=== PATIENT | female | born 1995 | race Caucasian/White ===

== ENCOUNTER 2018-05-29 22:43 | Observation (INO) | payer OTHER ==
[2018-05-29] MEDS ORDERED: ONDANSETRON HCL INJ/PF 4 MG/2 ML SDV IV ONE (22:52)
[2018-05-29 23:39] LABS: ABSOLUTE BASOPHILS # (AUTO) 0.1 10^3/uL (0.0-0.2); ABSOLUTE LYMPHOCYTES (AUTO) 1.6 10^3/uL (0.5-4.7); ABSOLUTE MONOCYTES (AUTO) 0.8 10^3/uL (0.1-1.4); ABSOLUTE NEUT (AUTO) 16.2 10^3/uL (1.7-8.2); BASOPHILS % (AUTO) 0.4 % (0-2); EOSINOPHILS % (AUTO) 0.3 % (0-6); HEMATOCRIT 40.4 % (36.0-47.0); HEMOGLOBIN 13.5 g/dL (12.0-15.5); LYMPHOCYTES % (AUTO) 8.5 % (13-45); MEAN CORPUSCULAR HEMOGLOBIN 29.8 pg (27.0-33.4); MEAN CORPUSCULAR HGB CONC 33.4 g/dL (32.0-36.0); MEAN CORPUSCULAR VOLUME 89 fl (80-97); MONOCYTES % (AUTO) 4.3 % (3-13); PLATELET COUNT 277 10^3/uL (150-450); RED BLOOD COUNT 4.52 10^6/uL (3.72-5.28); RED CELL DISTRIBUTION WIDTH 12.7 % (11.5-14.0); SEGMENTED NEUTROPHILS % (AUTO) 86.5 % (42-78); TOTAL CELLS COUNTED % (AUTO) 100 %; WHITE BLOOD COUNT 18.7 10^3/uL (4.0-10.5)
[2018-05-30 00:03] LABS: ALANINE AMINOTRANSFERASE 31 U/L (9-52); ALBUMIN 3.9 g/dL (3.5-5.0); ALKALINE PHOSPHATASE 72 U/L (38-126); ANION GAP 12 (5-19); ASPARTATE AMINO TRANSFERASE 29 U/L (14-36); BILIRUBIN,DIRECT 0.3 mg/dL (0.0-0.4); BILIRUBIN,TOTAL 0.6 mg/dL (0.2-1.3); BLOOD UREA NITROGEN 14 mg/dL (7-20); CALCIUM 8.9 mg/dL (8.4-10.2); CARBON DIOXIDE 22 mmol/L (22-30); CHLORIDE 104 mmol/L (98-107); GLUCOSE 206 mg/dL (75-110); LIPASE 36.2 U/L (23-300); POTASSIUM 4.1 mmol/L (3.6-5.0); SODIUM 138.3 mmol/L (137-145); TOTAL PROTEIN 6.8 g/dL (6.3-8.2)
[2018-05-30] MEDS ORDERED: NORMAL SALINE 1000 ML 1,000 ML IV ONE ×2 (03:51→06:49)
[2018-05-30 03:59] LABS: APPEARANCE,URINE CLOUDY; BILIRUBIN,URINE NEGATIVE (NEGATIVE); COLOR,URINE AMBER; GLUCOSE, URINE NEGATIVE (NEGATIVE); KETONES,URINE TRACE mg/dL (NEGATIVE); LEUKOCYTE ESTERASE,URINE NEGATIVE (NEGATIVE); NITRITE,URINE NEGATIVE (NEGATIVE); PROTEIN,URINE 30 mg/dL (NEGATIVE); URINE SPECIFIC GRAVITY 1.032
--- NOTE | 2018-05-30 04:08 | ER Document Report ---
ED General - General Chief Complaint: Abdominal Pain Stated Complaint: ABDOMINAL CRAMPING Time Seen by Provider: 05/30/18 03:24 Mode of Arrival: Ambulatory Information source: Patient Notes: 23-year-old female with no reported past medical history presents with complaint of abdominal pain, nausea, diarrhea. Patient states that she was at work when she suddenly began to sweat and then experienced sharp lower abdominal pain that now radiates up into the right upper quadrant. Patient had associated nausea and one episode of vomiting. She also states that she had an episode of diarrhea while waiting in the emergency department. Patient is unsure whether or not she is . Her last menstrual period was April 14, 2018. She states that she took a home test on May 16, 2018 which was positive but a repeat test done on May 23 was negative. TRAVEL OUTSIDE OF THE [place] IN LAST 30 DAYS: No - HPI Onset: Just prior to arrival Onset/Duration: Sudden Quality of pain: Cramping Associated symptoms: Diarrhea, Nausea, Vomiting, Sweating Exacerbated by: Denies Relieved by: Denies Similar symptoms previously: No Recently seen / treated by doctor: No - Related Data Allergies/Adverse Reactions: No Known Allergies Allergy (Unverified 05/29/18 22:45) Past Medical History - General Information source: Patient, [facility] Records - Social History Smoking Status: Never Smoker Chew tobacco use (# tins/day): No Frequency of alcohol use: None Drug Abuse: None Lives with: Family Family History: Reviewed & Not Pertinent Patient has suicidal ideation: No Patient has homicidal ideation: No - Medical History Medical History: Negative Renal/ Medical History: Denies: Hx Peritoneal Dialysis Review of Systems - Review of Systems Notes: REVIEW OF SYSTEMS: CONSTITUTIONAL : Denies fever, chills, Denies recent illness. Denies weight loss, recent hospitalizations. EENT: Denies visual changes, eye pain. Denies sore throat, oral lesions, difficulty swallowing. CARDIOVASCULAR: Denies chest pain. Denies palpitations. Denies lower extremity edema. RESPIRATORY: Denies cough. Denies shortness of breath, wheezing. GASTROINTESTINAL: Denies abdominal distention. Denies blood in vomitus, stools, or per rectum. Denies black, tarry stools. Denies constipation. GENITOURINARY: Denies difficulty urinating, painful urination, frequency, blood in urine, or vaginal discharge. MUSCULOSKELETAL: Denies back or neck pain or stiffness. Denies joint pain or swelling. SKIN: Denies rash, lesions or sores. HEMATOLOGIC : Denies easy bruising or bleeding. LYMPHATIC: Denies swollen glands. NEUROLOGICAL: Denies confusion or altered mental status. Denies loss of consciousness. Denies dizziness or lightheadedness. Denies headache. Denies weakness or paralysis. Denies problems difficulty with ambulation, slurred speech. Denies sensory loss, numbness, or tingling. Denies seizures. PSYCHIATRIC: Denies anxiety or stress. Denies depression, suicidal ideation, or homicidal ideation. Denies visual or auditory hallucinations. Physical Exam - Vital signs Vitals: Temp Pulse Resp BP Pulse Ox 98.6 F 88 17 117/51 L 100 05/30/18 05:30 05/30/18 05:30 05/30/18 05:30 05/30/18 05:30 05/30/18 05:30 - Notes Notes: PHYSICAL EXAMINATION: GENERAL: Well-appearing, well-nourished and in no acute distress. HEAD: Atraumatic, normocephalic. EYES: Pupils equal round and reactive to light, extraocular movements intact, conjunctiva are normal. ENT: Nares patent, oropharynx clear without exudates. Moist mucous membranes. NECK: Normal range of motion, supple without lymphadenopathy LUNGS: Breath sounds clear to auscultation bilaterally and equal. No wheezes rales or rhonchi. HEART: Regular rate and rhythm without murmurs ABDOMEN: Generalized abdominal tenderness with palpation no guarding, no rebound. No masses appreciated. Female : os open, moderate bleeding, small clots. Musculoskeletal: Normal range of motion, no pitting or edema. No cyanosis. NEUROLOGICAL: Cranial nerves grossly intact. Normal speech, normal gait. Normal sensory, motor exams PSYCH: Normal mood, normal affect. SKIN: Warm, Dry, normal turgor, no rashes or lesions noted. Course - Re-evaluation Re-evalutation: Laboratory 05/29/18 05/29/18 05/29/18 23:11 23:11 23:11 WBC 18.7 H RBC 4.52 Hgb 13.5 Hct 40.4 MCV 89 MCH 29.8 MCHC 33.4 RDW 12.7 Plt Count 277 Seg Neutrophils % 86.5 H Lymphocytes % 8.5 L Monocytes % 4.3 Eosinophils % 0.3 Basophils % 0.4 Absolute Neutrophils 16.2 H Absolute Lymphocytes 1.6 Absolute Monocytes 0.8 Absolute Eosinophils 0.0 Absolute Basophils 0.1 Sodium 138.3 Cancelled Potassium 4.1 Cancelled Chloride 104 Cancelled Carbon Dioxide 22 Cancelled Anion Gap 12 Cancelled BUN 14 Cancelled Creatinine 0.86 Cancelled Est GFR ( Amer) > 60 Cancelled Est GFR (Non-Af Amer) > 60 Cancelled Glucose 206 H Cancelled Calcium 8.9 Cancelled Total Bilirubin 0.6 Direct Bilirubin 0.3 Neonat Total Bilirubin Not Reportable Neonat Direct Bilirubin Not Reportable Neonat Indirect Bili Not Reportable AST 29 ALT 31 Alkaline Phosphatase 72 Total Protein 6.8 Albumin 3.9 Lipase 36.2 Cancelled Beta HCG, Quant 7364.30 H Total Beta HCG POSITIVE Urine Color Urine Appearance Urine pH Ur Specific [place] Urine Protein Urine Glucose (UA) Urine Ketones Urine Blood Urine Nitrite Urine Bilirubin Urine Urobilinogen Ur Leukocyte Esterase Urine WBC (Auto) Urine RBC (Auto) U Hyaline Cast (Auto) Squamous Epi Cells Auto Urine Mucus (Auto) Urine Ascorbic Acid Urine HCG, Qual Trichomonas (Wet Prep) Vaginal WBC Vaginal RBC Vaginal Yeast 05/30/18 05/30/18 03:41 05:43 WBC RBC Hgb Hct MCV MCH MCHC RDW Plt Count Seg Neutrophils % Lymphocytes % Monocytes % Eosinophils % Basophils % Absolute Neutrophils Absolute Lymphocytes Absolute Monocytes Absolute Eosinophils Absolute Basophils Sodium Potassium Chloride Carbon Dioxide Anion Gap BUN Creatinine Est GFR ( Amer) Est GFR (Non-Af Amer) Glucose Calcium Total Bilirubin Direct Bilirubin Neonat Total Bilirubin Neonat Direct Bilirubin Neonat Indirect Bili AST ALT Alkaline Phosphatase Total Protein Albumin Lipase Beta HCG, Quant Total Beta HCG Urine Color LEONARD Urine Appearance CLOUDY Urine pH 5.0 Ur Specific [place] 1.032 Urine Protein 30 H Urine Glucose (UA) NEGATIVE Urine Ketones TRACE H Urine Blood NEGATIVE Urine Nitrite NEGATIVE Urine Bilirubin NEGATIVE Urine Urobilinogen 2.0 H Ur Leukocyte Esterase NEGATIVE Urine WBC (Auto) 4 Urine RBC (Auto) 0 U Hyaline Cast (Auto) 234 Squamous Epi Cells Auto 1 Urine Mucus (Auto) MOD Urine Ascorbic Acid 20 H Urine HCG, Qual POSITIVE H Trichomonas (Wet Prep) NO TRICHOMONAS SEEN Vaginal WBC 1+ WBCS SEEN Vaginal RBC 4+ RBCS SEEN Vaginal Yeast NO YEAST SEEN Obstetrics Ultrasound 05/30/18 04:56 IMPRESSION: 1. No intrauterine gestation identified. Differential considerations include early normal , ectopic , or miscarriage. 2. Nonvascular heterogeneous left adnexal structure may represent a hemorrhagic cyst however other etiology not excluded. Close continued clinical, laboratory, and sonographic follow-up recommended. 3. Moderate amount of free pelvic fluid with internal debris. 2010 [employer]- All Rights Reserved 05/30/18 06:19 23-year-old female A1 presents with complaint of severe abdominal pain, nausea and vomiting. Patient symptoms started just prior to arrival. Her last menstrual period was April 11, 2018. She states that on May 16 she took a home test which was positive and then repeated at 1 week later and it was negative. Patient began bleeding today. Vital signs stable upon arrival. Patient initially appeared comfortable but during pelvic exam began experience being intense pain. Morphine was administered. Patient has a positive test and a beta quant 7634. Exam revealed an open Os and small clots with moderate bleeding. CBC does show a leukocytosis. CMP does show an elevated glucose without evidence of DKA. Bedside ultrasound significant for free fluid in the pelvis. Formal transvaginal ultrasound shows no IUP and moderate amount of free pelvic fluid with internal debris. Second IV line obtained. IV fluids initiated. Additional dose of fentanyl was administered. I did speak to Dr. Quinones DIRECTOR SOFTWARE on-call who will admit the patient. 05/30/18 06:19 05/30/18 06:51 - Vital Signs Vital signs: Temp Pulse Resp BP Pulse Ox 98.6 F 88 17 117/51 L 100 05/30/18 05:30 05/30/18 05:30 05/30/18 05:30 05/30/18 05:30 05/30/18 05:30 - Laboratory Result Diagrams: 05/29/18 23:11 05/29/18 23:11 Laboratory results interpreted by me: 05/29/18 05/29/18 05/29/18 23:11 23:11 23:11 WBC 18.7 H Seg Neutrophils % 86.5 H Lymphocytes % 8.5 L Absolute Neutrophils 16.2 H Glucose 206 H Beta HCG, Quant 7364.30 H Urine Protein Urine Ketones Urine Urobilinogen Urine Ascorbic Acid Urine HCG, Qual 05/30/18 03:41 WBC Seg Neutrophils % Lymphocytes % Absolute Neutrophils Glucose Beta HCG, Quant Urine Protein 30 H Urine Ketones TRACE H Urine Urobilinogen 2.0 H Urine Ascorbic Acid 20 H Urine HCG, Qual POSITIVE H - Diagnostic Test Radiology reviewed: Image reviewed, Reports reviewed Procedures - Ultrasound/Bedside Ultrasound/Bedside Time completed: 06:50 - FAST exam performed and significant for free fluid in Morison's pouch and the posterior cul-de-sac. Critical Care Note - Critical Care Note Total time excluding time spent on procedures (mins): 35 - minutes of critical care time spent in direct contact evaluating and reevaluating the patient, treating symptoms, reviewing labs and studies and speaking with family and consultants excluding any procedures Discharge - Discharge Clinical Impression: Bleeding in early , Free fluid in pelvis, Tachycardia Pelvic pain affecting Qualifiers: Trimester: first trimester Qualified Code(s): O26.891 - Other specified related conditions, first trimester Ectopic without intrauterine Qualifiers: Location of ectopic : unspecified location Qualified Code(s): O00.90 - Unspecified ectopic without intrauterine Condition: Good Disposition: ADMITTED INPATIENT Admitting Provider: [facility] Admitted: Labor and Delivery Referrals: SURINDER,NO [NO LOCAL MD] - Follow up as needed
[2018-05-30] MEDS ORDERED: MORPHINE SULFATE 10 MG/ML INJ ONE (05:22)
[2018-05-30] MEDS ORDERED: MORPHINE SULFATE 10 MG/ML INJ IV ONE (05:33)
[2018-05-30 06:01] LABS: RBCS (WET MOUNT) 4+ RBCS SEEN; T.VAGINALIS (WET MOUNT) NO TRICHOMONAS SEEN; WBCS (WET MOUNT) 1+ WBCS SEEN; YEAST (WET MOUNT) NO YEAST SEEN
--- NOTE | 2018-05-30 06:39 | RADIOLOGY REPORT (SQ) ---
EXAM DESCRIPTION: US TRANSVAGINAL COMPLETED DATE/TME: 05/30/2018 04:56 CLINICAL HISTORY: 23 years, Female, Pelvic pain and bleeding with LMP: 04/24/2018 COMPARISON: None. TECHNIQUE: Complete first trimester obstetrical ultrasound with transvaginal and transabdominal imaging. FINDINGS: The uterus measures 8.4 x 5.1 x 3.8 cm. Endometrial thickness of 0.9 cm. Cervical length of 2.8 cm and closed. No myometrial abnormalities. No intrauterine gestation identified. Moderate amount of free pelvic fluid. The right ovary is not identified. In the left adnexa there is a heterogeneous structure with no blood flow measuring 6.5 x 6.7 x 4.6 cm. This may represent a large hemorrhagic ovarian cyst however other etiologies are not excluded. IMPRESSION: 1. No intrauterine gestation identified. Differential considerations include early normal , ectopic , or miscarriage. 2. Nonvascular heterogeneous left adnexal structure may represent a hemorrhagic cyst however other etiology not excluded. Close continued clinical, laboratory, and sonographic follow-up recommended. 3. Moderate amount of free pelvic fluid with internal debris. 2011 [employer]- All Rights Reserved
[2018-05-30] MEDS ORDERED: FENTANYL CITRATE INJ/PF 100 MCG/2 ML AMPUL IV ONE (06:49)
[2018-05-30 07:29] LABS: CHLAM PCR NOT DETECTED (NOT DETECT); GON PCR NOT DETECTED (NOT DETECT)
--- NOTE | 2018-05-30 08:55 | HISTORY AND PHYSICAL E ---
History and Physical NAME: CHELSEA ZAMUDIO : 1995 AGE: 23Y ADMITTED: 05/30/2018 ROOM: 213 HISTORY OF PRESENT CONDITION: The patient is a 23-year-old, 2, para 0, last menstrual period April 24, 2018 who presented to the emergency room last p.m. with a sudden onset of lower abdominal pain. She states that she had 1 episode of being very hot and nauseated with vomiting prior to presenting to the Emergency Room. Her Beta hCG was 7364. Ultrasound did reveal an empty uterus with fluid in the cul-de-sac. There was a rough adnexa heterogenous structure measuring approximately 6.5 x 6.7 x 4.6. Patient states she did pass some old blood while in the emergency room. Her blood type is Rh-Positive. MEDICAL/SURGICAL HISTORY: Negative. REGIONAL ACCOUNT MANAGER HISTORY: Spontaneous in 2011. MEDICATIONS: None. ALLERGIES: None known. FAMILY HISTORY: Noncontributory. REVIEW OF SYSTEMS: Patient states she has regular periods and is presently using no control. Patient states she has regular cycles every 28 to 32 days without dysmenorrhea. All other medical systems are reviewed and are negative. PHYSICAL EXAMINATION: VITALS: Afebrile, stable. GENERAL: A well-developed, well-nourished young female in no distress. HEENT: Head: Normocephalic, atraumatic. Eyes: Pupils equal, round, and react to light and accommodate. Extraocular movements intact. Ears: Both TMs visible with good landmarks. Nose: Moist mucosa, midline septum. Throat: Normal pharynx. NECK: Supple. No adenopathy. LUNGS: Clear to auscultation bilaterally. HEART: Regular rate and rhythm. No murmurs. ABDOMEN: Slightly obese, soft. Tender with deep palpation. No masses. No organomegaly. MUSCULOSKELETAL: Good range of motion all joints. Good strength. No CVA tenderness. NEUROLOGIC: Grossly intact, without focal deficits. EXTREMITIES: Distal pulses are symmetrical bilaterally. No edema. Nontender. PELVIC: External: Normal female. Vagina: Without lesions. There is a scant amount of old blood in the vault. Cervix: The os is closed. No active bleeding. Uterus: Anteverted. Normal shape, size, and contour, approximately 8 weeks in size. Tender with motion. Adnexa: No masses could be palpated. There is bilateral tenderness that can be elicited with mild to moderate palpation. IMPRESSION/PLAN: Ectopic . We will take patient to the operating room and undergo a laparoscopic possibly laparotomy with salpingectomy, possible salpingo-oophorectomy. Risks, benefits, as well as alternatives were discussed with patient and patient's mother at length. They verbalized understanding and wishes to proceed. DICTATING PHYSICIAN: DORENE BENITEZ M.D. [id number] Y#: [id number] ID: [id number] JOB#: [id number] ACCT: [id number] cc:Rey PÉREZ
[2018-05-30] MEDS ORDERED: HYDROMORPHONE HCL INJ/PF 2 MG/ML AMPULE ONE ×2 (09:35→14:36)
[2018-05-30] MEDS ORDERED: FENTANYL CITRATE INJ/PF 100 MCG/2 ML AMPUL ONE (09:35)
[2018-05-30] MEDS ORDERED: MIDAZOLAM 2 MG/2 ML INJ ONE (09:35)
[2018-05-30] MEDS ORDERED: DEXAMETHASONE SOD PHOSPHATE INJ 4 MG/1 ML VIAL ONE (09:35)
[2018-05-30] MEDS ORDERED: ONDANSETRON HCL INJ/PF 4 MG/2 ML SDV ONE (09:36)
[2018-05-30] MEDS ORDERED: PROPOFOL INJ 200 MG/20 ML VIAL IV ONE (09:36)
[2018-05-30] MEDS ORDERED: ACETAMINOPHEN 1,000 MG/100 ML RTUPB IV ONE (09:36)
[2018-05-30] MEDS ORDERED: SUCCINYLCHOLINE CHLORIDE INJ 200 MG/10 ML VIAL ONE (09:44)
[2018-05-30] MEDS ORDERED: ROCURONIUM BROMIDE INJ 50 MG/5 ML VIAL IV ONE (09:44)
[2018-05-30] MEDS ORDERED: DIPHENHYDRAMINE HCL 50 MG/ML VIAL IV PRN (10:41)
[2018-05-30] MEDS ORDERED: FENTANYL CITRATE INJ/PF 100 MCG/2 ML AMPUL IV PRN ×3 (10:41)
[2018-05-30] MEDS ORDERED: MEPERIDINE HCL/PF INJ 25 MG/1 ML DISP.SYRIN IV PRN (10:41)
[2018-05-30] MEDS ORDERED: MORPHINE SULFATE 10 MG/ML INJ IV PRN (10:41)
[2018-05-30] MEDS ORDERED: PROMETHAZINE HCL INJ 25 MG/1 ML VIAL IV PRN ×2 (10:41→11:35)
[2018-05-30] MEDS ORDERED: SIMETHICONE 80 MG TAB.CHEW PO PRN (11:35)
[2018-05-30] MEDS ORDERED: OXYCODONE-ACETAMINOPHEN 5-325 MG TABLET PO PRN ×2 (11:35)
[2018-05-30] MEDS ORDERED: HYDROMORPHONE HCL INJ/PF 2 MG/ML AMPULE IV PRN (11:35)
[2018-05-30] MEDS ORDERED: ACETAMINOPHEN 1,000 MG/100 ML RTUPB IV PRN (11:35)
[2018-05-30] MEDS ORDERED: ACETAMINOPHEN 325 MG TABLET PO PRN (11:35)
[2018-05-30] MEDS ORDERED: RINGERS SOLUTION,LACTATED 1,000 ML IV PRN (11:35)
--- NOTE | 2018-05-30 11:43 | Operative Report ---
Operative Report DATE OF SURGERY: 05/30/18 PREOPERATIVE DIAGNOSIS: Ruptured left ectopic POSTOPERATIVE DIAGNOSIS: Same OPERATION: Laparoscopy with removal of left fallopian tube and evacuation of blood clot SURGEON: JEN BOSWELL ANESTHESIA: GA TISSUE REMOVED OR ALTERED: Left fallopian tube COMPLICATIONS: None ESTIMATED BLOOD LOSS: Approximately 600 cc of blood in the belly from the ectopic INTRAOPERATIVE FINDINGS: Ruptured left fallopian tube PROCEDURE: Patient was taken the OR and placed in a supine position. General anesthesia was induced. She is placed in dorsolithotomy position using Mehdi stirrups. Her abdomen was prepared and draped in sterile fashion. Her bladder was drained with a red rubber catheter. A sponge stick was placed in the vagina for manipulation the uterus. An incision was made to the umbilicus. The natural umbilical defect was not a found. Therefore a cutdown approach was done. Norman clamps were used to grab the fascia and elevate the fascia. Incision was made with curved Pride scissors. A blunt port was placed. Laparoscopy confirmed appropriate placement. The abdomen was insufflated with CO2 gas. There is large blood clot in the abdomen. Suprapubic incision was made and a port was placed under laparoscopic visualization as well as a left lateral port placed under laparoscopic visualization. Again delinquent account clerk aspirator was used to evacuate clot. The uterus was a then visualized and elevated. The bleeding was coming from the left fallopian tube. The right fallopian tube and both ovaries appeared normal. Using the LigaSure device the bleeding left fallopian tube was removed. Pedicles were hemostatic. The remainder the case we evacuated the clot from the abdomen. Pelvis was irrigated and suctioned free of fluid at the end of the case. The removed fallopian tube was sent for specimen. The ports were removed under laparoscopic visualization. The gas was allowed to escape from the abdomen. The umbilical port and scope were removed in unison. She was extubated and taken to recovery room in stable condition.
[2018-05-30] MEDS ORDERED: IBUPROFEN 800 MG TABLET PO SCH (12:00)
--- NOTE | 2018-05-30 12:48 | PDOC DISCHARGE SUMMARY ---
General - Admit/Disc Date/PCP Admission Date/Primary Care Provider: 05/30/18 06:49 Discharge Date: 05/30/18 - Discharge Diagnosis (1) Ectopic without intrauterine Is this a current diagnosis for this admission?: Yes - Additional Information Resuscitation Status: Full Code Home Medications: No Home Medications 05/30/18 History of Present Illness Patient complains of: Abdominal pain History of Present Illness: CHELSEA ZAMUDIO is a 23 year old female She is 2 para 0 A1 presenting with pain and of with a quant of 7000. She has empty uterus and an apparent in the left fallopian tube. Hospital Course Hospital Course: She was taken to surgery and underwent laparoscopic resection of her left fallopian tube. Blood was evacuated. Please see the operative report. Postoperatively she is doing well in her room on is comfortable to go home. We will see her back in 2 weeks. Physical Exam - Physical Exam Vital Signs: Temp Pulse Resp BP Pulse Ox 98.9 F 98 18 129/61 H 99 05/30/18 09:41 05/30/18 09:41 05/30/18 09:41 05/30/18 09:41 05/30/18 09:41 Intake & Output 05/29/18 05/30/18 05/31/18 06:59 06:59 06:59 Intake Total 1000 Output Total 600 Balance 400 Result Laboratory Results: 05/30/18 06:53 Blood Type Cancelled Antibody Screen Cancelled Impressions: Obstetrics Ultrasound 05/30/18 04:56 IMPRESSION: 1. No intrauterine gestation identified. Differential considerations include early normal , ectopic , or miscarriage. 2. Nonvascular heterogeneous left adnexal structure may represent a hemorrhagic cyst however other etiology not excluded. Close continued clinical, laboratory, and sonographic follow-up recommended. 3. Moderate amount of free pelvic fluid with internal debris. 2010 [employer]- All Rights Reserved Plan Discharge Plan: Home to rest follow-up in 2 weeks. Pain medicines for home were given.
[2018-05-30] MEDS ORDERED: OXYCODONE-ACETAMINOPHEN 5-325 MG TABLET ONE (12:52)
[2018-05-30] MEDS ORDERED: IBUPROFEN 800 MG TABLET ONE (12:59)
[2018-05-30 13:00] LABS: HEMATOCRIT 29.6 % (36.0-47.0); MEAN CORPUSCULAR HEMOGLOBIN 30.3 pg (27.0-33.4); MEAN CORPUSCULAR HGB CONC 34.5 g/dL (32.0-36.0); MEAN CORPUSCULAR VOLUME 88 fl (80-97); PLATELET COUNT 203 10^3/uL (150-450); RED BLOOD COUNT 3.37 10^6/uL (3.72-5.28); RED CELL DISTRIBUTION WIDTH 12.9 % (11.5-14.0); WHITE BLOOD COUNT 15.3 10^3/uL (4.0-10.5)
[2018-05-30 13:04] LABS: HEMOGLOBIN 10.2 g/dL (12.0-15.5)
[2018-05-30] MEDS ORDERED: KETOROLAC TROMETHAMINE INJ/PF 30 MG/1 ML SDV IV SCH (14:00)
[2018-05-30] MEDS ORDERED: DOCUSATE SODIUM 100 MG CAPSULE PO SCH (18:00)
[2018-05-30 18:14] VITALS: BP 129/61
== END 2018-05-30 18:33 | disposition home or self-care (01) ==
LOC: ER 22:43 → EH 05-30 06:49 → INTOOBSV 05-30 06:49 → 2N 05-30 08:05
PROVIDERS: ADMIT Obstetrics & Gynecology; ATTEND Obstetrics & Gynecology
PROC: 0UT64ZZ Resection of Left Fallopian Tube, Percutaneous Endoscopic Approach (ICD-10-PCS; 2018-05-30)
PROC: 10T24ZZ Resection of Products of Conception, Ectopic, Percutaneous Endoscopic Approach (ICD-10-PCS; principal; 2018-05-30 10:45)
DX: O00.102 Left tubal pregnancy without intrauterine pregnancy (principal); O26.891 Other specified pregnancy related conditions, first trimester; R00.0 Tachycardia, unspecified; R19.7 Diarrhea, unspecified
CPT/HCPCS: 99291; 96374; 86900; 86901; 36415 ×2; 87210; 86850; 84702; 83690; 85025; 85027; 81025; 80053; 81001; 87491; 87591; 88305 ×2; 76817; 59151; G0378 ×2; J2250; J3490; J1100; J3010; J2270; J1170; J2550; J0330; J2405; J2704; J0131; 840

== ENCOUNTER 2018-05-30 20:27 | Emergency (ER) | payer OTHER ==
--- NOTE | 2018-05-31 00:16 | ER Document Report ---
ED General - General Chief Complaint: Incision Problem Stated Complaint: INCISION PROBLEM Time Seen by Provider: 05/30/18 23:53 Mode of Arrival: Wheelchair Information source: Patient Notes: Patient is a 23-year-old female who presents with chief complaint of postsurgical bleeding. Patient reports she had a laparoscopy done this morning for a ectopic . Patient reports that sometime over the last several hours she believes she "popped a stitch" and filled bleeding from her low abdomen. Patient currently denies any pain. TRAVEL OUTSIDE OF THE [place] IN LAST 30 DAYS: No - Related Data Allergies/Adverse Reactions: No Known Allergies Allergy (Unverified 05/29/18 22:45) Past Medical History - General Information source: Patient - Social History Smoking Status: Never Smoker Frequency of alcohol use: None Drug Abuse: None Family History: Reviewed & Not Pertinent Patient has suicidal ideation: No Patient has homicidal ideation: No Renal/ Medical History: Denies: Hx Peritoneal Dialysis Past Surgical History: Reports: Hx Gynecologic Surgery - Left adnexal surgery for ectopic Review of Systems - Review of Systems Female Genitourinary: See HPI -: Yes All other systems reviewed and negative Physical Exam - Vital signs Vitals: Temp Pulse BP Pulse Ox 98.2 F 134 H 127/73 H 96 05/30/18 20:33 05/30/18 20:33 05/30/18 20:33 05/30/18 20:33 - Notes Notes: PHYSICAL EXAMINATION: GENERAL: Well-appearing, well-nourished and in no acute distress. HEAD: Atraumatic, normocephalic. EYES: Pupils equal round and reactive to light, extraocular movements intact, conjunctiva are normal. ENT: Nares patent, oropharynx clear without exudates. Moist mucous membranes. NECK: Normal range of motion, supple without lymphadenopathy LUNGS: Breath sounds clear to auscultation bilaterally and equal. No wheezes rales or rhonchi. HEART: Regular rate and rhythm without murmurs ABDOMEN: Soft, nontender, nondistended abdomen. No guarding, no rebound. No masses appreciated. Multiple lap sites, lower lap site is open with small amount of active bleeding, ecchymosis noted around the area. Female : deferred Musculoskeletal: Normal range of motion, no pitting or edema. No cyanosis. NEUROLOGICAL: Cranial nerves grossly intact. Normal speech, normal gait. Normal sensory, motor exams PSYCH: Normal mood, normal affect. SKIN: Warm, Dry, normal turgor, no rashes or lesions noted. Course - Re-evaluation Re-evalutation: Bruising noted to lower abdomen, lower lap site is open with a slow trickle of blood. Dressing in place. I consulted Dr. Waterman the CHIEF LIFESTYLE OFFICER on-call who will come in to see the patient. Dr. Waterman applied new dressing to the wound as well as an abdominal binder, ok to d/c patient home and have her follow up in the office. - Vital Signs Vital signs: Temp Pulse Resp BP Pulse Ox 97.9 F 97 113/52 L 97 05/31/18 00:54 05/31/18 00:54 05/31/18 00:54 05/31/18 00:54 Discharge - Discharge Clinical Impression: Post-op bleeding Qualifiers: Surgical complication system/body Area: subcutaneous tissue Procedure type: non -dermatologic Qualified Code(s): L76.22 - Postprocedural hemorrhage of skin and subcutaneous tissue following other procedure Condition: Stable Disposition: HOME, SELF-CARE Additional Instructions: Please follow-up with Dr. Samir Waterman's office. I am enclosing all of his contact info. No heavy lifting. Please keep the dressing in place that was placed by Dr. Waterman. Please return to the emergency department if you develop additional bleeding, redness, increased pain or any other symptom that is concerning to you. Referrals: JEN WATERMAN MD [ACTIVE STAFF] - Follow up as needed
[2018-05-31 00:58] VITALS: BP 113/52
== END 2018-05-31 00:58 | disposition home or self-care (01) ==
LOC: ER 20:27
DX: L76.22 Postprocedural hemorrhage of skin and subcutaneous tissue following other procedure (principal); Y83.8 Other surgical procedures as the cause of abnormal reaction of the patient, or of later complication, without mention of misadventure at the time of the procedure
CPT/HCPCS: 99283